=== PATIENT | female | born 1945 | race Caucasian/White ===

== ENCOUNTER → 2023-06-08 | Outpatient (CLI) | payer MEDICARE, OTHER ==
--- NOTE | 2023-06-08 11:05 | XR ---
EXAMINATION TYPE: XR chest 2V DATE OF EXAM: 06/08/2023 COMPARISON: NONE TECHNIQUE: PA and lateral views submitted. HISTORY: Ovarian cancer FINDINGS: The lungs are clear and there is no pneumothorax, pleural effusion, or focal pneumonia. Heart size normal and no overt failure. Osseous structures demonstrate hypertrophic and degenerative changes of the spine. A Mediport catheter seen with tip overlying the SVC. Somewhat nodular density in the right upper lobe measuring 1.5 cm. Underlying COPD. Lateral view suggest a stent or catheter in the upper quadrant of the abdomen. IMPRESSION: 1. COPD. There is a somewhat nodular 1.5 cm density right upper lobe. Recommend CT of the chest to ex clude nodule.
== END | disposition home or self-care (01) ==
LOC: RADXRMAIN 10:46
PROVIDERS: ATTEND Internal Medicine
DX: C56.9 Malignant neoplasm of unspecified ovary (principal); J44.9 Chronic obstructive pulmonary disease, unspecified; R91.1 Solitary pulmonary nodule
CPT/HCPCS: 71046